=== PATIENT | female | born 1975 | race Caucasian/White ===

== ENCOUNTER 2020-03-01 20:05 | Emergency (ER) | payer OTHER ==
[~2020-03-01] VITALS: Ht 160 cm; Wt 96.6 kg
[2020-03-01 20:25] VITALS: BP 121/74
--- NOTE | 2020-03-01 20:29 | NUR ---
Sharron salazar in [facility] - 03/01/20 at 2 by [facility] BIBA TO WITH STEADY GAIT.
--- NOTE | 2020-03-01 20:32 | NUR ---
AMBULATED TO BED 06 WITH STEADY GAIT.
--- NOTE | 2020-03-01 20:35 | NUR ---
PT 45 Y/O FEMALE BIB SELF FOR C/O L TOE PAIN X 2 DAY S/P HITTING TOE IN COLSET DOOR. PT STATES 6/10 PAIN. NO DISCOLORATION NOTED. THIRD TOE DISTAL TO BIG TOE MISSING NAIL. VSS. RESPIRATIONS EVEN AND UNLABORED. SKIN IS WARM AND DRY TO TOUCH. BED LOCKED AND IN LOWEST POSITION. MEDHX: ASTHMA ALLERGIES: SEAFOOD, NORCO, CODEINE
--- NOTE | 2020-03-01 20:38 | NUR ---
TY TRACEY AT BEDSIDE.
[2020-03-01] MEDS ORDERED: IBUPROFEN 600 MG TAB PO ONE (20:40)
[2020-03-01] MEDS ORDERED: BACITRACIN OINT 500 UNITS/GM PKT TP ONE (20:40)
--- NOTE | 2020-03-01 21:29 | NUR ---
PLACED BACITRACIN ON PT'S FOURTH DIGET ON LEFT FOOT AND WRAP WITH NON-ADH BANDAGE AND COBAN.
--- NOTE | 2020-03-01 21:58 | NUR ---
Patient discharged with v/s stable. Written and verbal after care instructions given and explained. Patient alert, oriented and verbalized understanding of instructions. Ambulatory with steady gait. All questions addressed prior to discharge. ID band removed. Patient advised to follow up with PMD. Rx of BACITRACIN AND MOTRIN given. Patient educated on indication of medication including possible reaction and side effects. Opportunity to ask questions provided and answered.
[2020-03-01 21:59] VITALS: BP 121/74
== END 2020-03-01 21:58 | disposition home or self-care (01) ==
LOC: MED 20:05
DX: S91.205A Unspecified open wound of left lesser toe(s) with damage to nail, initial encounter (principal); W23.0XXA Caught, crushed, jammed, or pinched between moving objects, initial encounter; Y93.89 Activity, other specified; Y92.89 Other specified places as the place of occurrence of the external cause; Y99.8 Other external cause status
CPT/HCPCS: 11730; 73660; 99283; Q0092